=== PATIENT | female | born 1955 | race Caucasian/White ===

== ENCOUNTER 2019-04-12 05:35 | Day surgery (SDC) | payer BC ==
[2019-04-12] MEDS ORDERED: PROPOFOL 10 MG/ML VIAL IV ONE (05:36)
[2019-04-12] MEDS ORDERED: MIDAZOLAM HCL 2MG/2ML VIAL IV ONE (05:36)
[2019-04-12] MEDS ORDERED: *PACU ONLY* KETAMINE HCL 10 MG/ML (20ML) VIAL IV ONE (05:36)
[2019-04-12] MEDS ORDERED: FENTANYL PF 100MCG/2ML VIAL IV ONE (05:36)
[2019-04-12] MEDS ORDERED: KETOROLAC 30 MG/ML VIAL IVP ONE (05:36)
[2019-04-12] MEDS ORDERED: RINGERS SOLUTION,LACTATED 1,000 ML IV ONE (06:10)
[2019-04-12] MEDS ORDERED: LIDOCAINE 1% W/EPI 1:100,000 MDV 20 ML VIAL SQ ONE (07:31)
[2019-04-12] MEDS ORDERED: BUPIVACAINE 0.5% W/EPI MPF 30 ML VIAL SQ ONE (07:31)
[2019-04-12] MEDS ORDERED: DEXAMETHASONE PRESERVATIVE FREE 10MG/ML VIAL SQ ONE (07:31)
--- NOTE | 2019-04-13 15:30 | Operative Note ---
DATE OF SURGERY: 04/12/2019 PREOPERATIVE DIAGNOSIS: Left cervical spondylosis without myelopathy, ICD10 code M47.812. OPERATION: Radiofrequency rhizotomy of left cervical facets 4-5, 5-6, 6-7. INDICATIONS: This patient presents with left-sided neck pain. Examination showed diffuse tenderness of the cervical spine. Range of motion does cause pain to the neck with extension. Diagnostic studies show multiple-level spondylosis. A facet series 75% pain control. Due to the failure of therapy and success of facet series, patient presents for rhizotomy for more long-term relief. PROCEDURE: Intravenous line, vital sign monitoring, IV sedation, prepped and draped in sterile technique. Under imaging, cervical facet levels on left at 4- 5, 5-6, 6-7 were identified and marked. Skin infiltrated. A 22-gauge rhizotomy cannula positioned. Stimulation trial was conducted. Rhizotomy burn 80 degrees, 90 seconds performed at each of the sites to the left. Local with antiinflammatory into the sites. Topical antibiotic and sterile dressing applied. Will monitor and evaluate. [facility]
== END 2019-04-12 08:10 | disposition home or self-care (01) ==
LOC: SUR 05:35
PROVIDERS: ATTEND Pain Medicine Interventional Pain Medicine
DX: M47.812 Spondylosis without myelopathy or radiculopathy, cervical region (principal)
CPT/HCPCS: 64633; 64634 ×2; 01936; J1885; J1100; J3010; J7120